=== PATIENT | male | born 1985 | race Two or more races ===

== ENCOUNTER 2021-05-13 09:41 | Emergency (ER) | payer OTHER, BC ==
[~2021-05-13] VITALS: Ht 177.8 cm; Wt 95.3 kg
[2021-05-13 09:50] VITALS: BP 150/89
== END 2021-05-13 10:51 | disposition home or self-care (01) ==
LOC: ER 09:41
DX: J06.9 Acute upper respiratory infection, unspecified (principal); Z20.822 Contact with and (suspected) exposure to COVID-19
CPT/HCPCS: 87426; 99283; C9803